=== PATIENT | female | born 1960 | race Caucasian/White ===

== ENCOUNTER → 2017-12-05 11:44 | Outpatient (CLI) | payer OTHER, SELFPAY ==
--- NOTE | 2017-12-05 11:51 | RAD_ITS ---
STUDY: X-RAY - LEFT HAND REASON FOR EXAM: Female, 57 years old. JOINT PAIN, NKI TECHNIQUE: 3 view(s) of the hand. COMPARISON: None. FINDINGS: Normal radiocarpal articulation. Normal distal radioulnar joint. The trapezium bone is missing and has been surgically removed. Normal visualized carpal bones. Normal carpal articulations There is degenerative arthrosis of the carpometacarpal (CMC) articulation of the thumb. Normal second through fifth carpometacarpal joints. Normal metacarpi. There is degenerative arthrosis of the metacarpophalangeal (MCP) joints. Normal interphalangeal joint of the thumb. Normal proximal and distal phalanges of the thumb. Normal metacarpophalangeal joints of the second through fifth fingers. There is degenerative arthrosis of the distal interphalangeal joints of the second and fifth metacarpal (Myao and questionable post fifth fingers. Normal phalanges of the second through fifth fingers. The soft tissue structures are unremarkable. RAD/Hand Min 3 Views IMPRESSION: Degenerative joint disease of the hand, as described above. Electronically Signed: Ollie Esparza MD at 11:43 EDT Tel , Service support ,
--- NOTE | 2017-12-05 11:51 | RAD_ITS ---
STUDY: X-RAY - RIGHT SHOULDER REASON FOR EXAM: Female, 57 years old. PAIN, LIMITED ROM, NKI TECHNIQUE: 4 view(s) of the shoulder. COMPARISON: None. FINDINGS: Normal glenohumeral articulation. There is degenerative arthrosis of the acromioclavicular joint without inferior osseous spur formation. Normal acromion. Normal humeral head and visualized proximal humerus. The soft tissue structures are unremarkable. Normal visualized pulmonary apex. RAD/Shoulder min 2 Views IMPRESSION: There is degenerative arthrosis of the acromioclavicular joint. Electronically Signed: Ollie Esparza MD at 12:09 EDT Tel , Service support ,
--- NOTE | 2017-12-05 11:51 | RAD_ITS ---
STUDY: X-RAY - RIGHT HAND REASON FOR EXAM: Female, 57 years old. Hand pain TECHNIQUE: 3 view(s) of the hand. COMPARISON: None. FINDINGS: Normal radiocarpal articulation. Normal distal radioulnar joint. Normal visualized carpal bones. Normal carpal articulations There is degenerative arthrosis of the carpometacarpal (CMC) articulation of the thumb. Normal second through fifth carpometacarpal joints. Normal metacarpi. There is degenerative arthrosis of the metacarpophalangeal (MCP) joints. Normal interphalangeal joint of the thumb. Normal proximal and distal phalanges of the thumb. Normal metacarpophalangeal joints of the second through fifth fingers. There is degenerative arthrosis of the distal interphalangeal joints of the second and fifth metacarpal (Mayo and questionable post fifth fingers. Normal phalanges of the second through fifth fingers. The soft tissue structures are unremarkable. RAD/Hand Min 3 Views IMPRESSION: Degenerative joint disease of the hand, as described above. Electronically Signed: Ollie Esparza MD at 11:05 EDT Tel , Service support ,
--- NOTE | 2017-12-05 11:51 | RAD_ITS ---
STUDY: X-RAY - PELVIS AND RIGHT HIP REASON FOR EXAM: Female, 57 years old. PAIN, TROCHANTERIC BURSITIS, NKI TECHNIQUE: Radiological exam, hip, unilateral, with pelvis when performed; 2 or 3 views. COMPARISON: None. FINDINGS: There is a non-specific bowel gas pattern. Normal visualized soft tissue structures. Normal bilateral iliac wings, sacroiliac joints and visualized sacrum. Normal bilateral superior and inferior pubic rami. Normal pubic symphysis. Normal bilateral ischial tuberosities. There are osteoarthritic changes of the femoral head with marginal osteophyte formation. There is osteoarthritic spur formation of the acetabular rim. There is moderate articular joint space narrowing of the hip. RAD/Hip 2-3 Views with Pelvis IMPRESSION: There are osteoarthritic changes of the pelvis and hip. Electronically Signed: Ollie Esparza MD at 11:54 EDT Tel , Service support ,
== END ==
PROVIDERS: Family Provider Internal Medicine; PCP Internal Medicine; Visit Provider Internal Medicine
DX: M70.61 Trochanteric bursitis, right hip (principal); M25.511 Pain in right shoulder; M25.50 Pain in unspecified joint
CPT/HCPCS: 73030; 73130; 73502

== ENCOUNTER → 2019-09-29 15:01 | Outpatient (CLI) | payer OTHER, SELFPAY ==
--- NOTE | 2019-09-29 15:09 | BI_ITS ---
MAMMOGRAPHY - BILATERAL SCREENING REASON FOR EXAM: Female, 59 years old. Routine annual screening examination. PERTINENT HISTORY: Non-contributory. TECHNIQUE: Digital bilateral breast skyla (3D mammographic acquisition) in the CC and MLO projections. 2-D mediolateral oblique (MLO) and craniocaudad (CC) views of both breasts were obtained. CAD: Full Field Digital Mammography with Computer Added Detection was performed. COMPARISON: Comparison is made with prior study dated November 30, 2016. FINDINGS: Breast Composition: The breasts are heterogeneously dense, which may obscure small masses. There are no dominant masses or suspicious calcifications. Stable asymmetry of breast tissue or more breast tissue is seen at the 12:00 position of the left breast as compared to the right side. This is unchanged. 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 Stable benign-appearing axillary lymph nodes. No other significant abnormalities are identified. There has been no significant change since the prior study. BI/SCREEN MAMM (CAD) W/SKYLA BILAT IMPRESSION: Stable bilateral screening mammogram. Yearly follow-up mammogram recommended. (A) ASSESSMENT CATEGORY: BIRADS Category 2: Benign. A letter regarding these results will be sent to the patient by the facility within 30 days. Approximately 10% of breast cancers are not detected by mammography. A normal mammogram should not delay biopsy of a clinically suspicious abnormality. [id number] Electronically Signed: [place], at 8:46 EST , Service support ,
--- NOTE | 2019-09-29 15:11 | BD_ITS ---
STUDY: DUAL ENERGY X-RAY ABSORPTIOMETRY / DXA REASON FOR EXAM: Female, 59 years old. 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 COMPARISON: None. FINDINGS: Lumbar Spine (L1-L4): g/cm2 (1.090) / T-score (-0.7) / Z-score (0.4) Findings are suggestive of normal bone density with a low fracture risk. Left Femur Total: g/cm2 (0.831) / T-score (-1.4) / Z-score (-0.5) Left Femoral Neck: g/cm2 (0.800) / T-score (-1.7) / Z-score (-0.5) Right Femur Total: g/cm2 (0.934) / T-score (-0.6) / Z-score (0.3) Right Femoral Neck: g/cm2 (0.970) / T-score (-0.5) / Z-score (0.7) BD/Dexa Bone Density Study IMPRESSION: The patient is considered osteopenic as outlined below according to World Darrell Organization (WHO) criteria with a moderate fracture risk. Reference Information: The T-score is the number of standard deviations above or below the standard which is normal for young adults at their peak bone mineral density. The World Health Organization (WHO) interprets the T-scores as follows: Above -1 Normal bone density Between -1 and -2.5 Osteopenia Equal to / or below -2.5 Osteoporosis As a practical clinical guideline, osteopenia may be graded as follows: Mild -1 through -1.5 Moderate -1.6 through -2.0 Severe -2.1 through -2.4 The Z-score is the number of standard deviations above or below age-matched controls. A Z-score of less than -1.5 would be considered abnormal. References: 1. NIH Osteoporosis and Related Bone Diseases http://www.osteo.org 2. International Society for Clinical Densitometry http://www.iscd.org 3. National Osteoporosis Foundation http://www.nof.org Electronically Signed: [place], at 15:38 EST , Service support ,
== END ==
PROVIDERS: Family Provider Internal Medicine; PCP Internal Medicine; Referring Provider Internal Medicine; Visit Provider Internal Medicine
DX: Z12.31 Encounter for screening mammogram for malignant neoplasm of breast (principal); Z78.0 Asymptomatic menopausal state
CPT/HCPCS: 77063; 77067; 77080

== ENCOUNTER 2020-11-27 18:15 | Observation (INO) | payer OTHER, SELFPAY ==
[2020-11-27] VITALS (9 sets, daily range): BP systolic 167–193; BP diastolic 98–144; PULSE 88–104; RESP 17–18; TEMP 36.6–37.1; O2SAT 98–100; BMI 26.9; BMI 25.4
--- NOTE | 2020-11-27 18:39 | CT_ITS ---
We are attempting to reach an attending provider to discuss findings. An addendum with communication details will be sent when the communication is complete. STUDY: CT HEAD STROKE PROTOCOL W/O CONTRAST INJECTION REASON FOR EXAM: Female, 60 years old. Neuro deficit, acute, stroke suspected RADIATION DOSAGE (If Supplied By Facility): CTDIvol = ( ) mGy, DLP = ( ) mGycm TECHNIQUE: Transaxial CT imaging of the brain was performed without administration of intravenous contrast material. Individualized dose optimization techniques were used for this CT. COMPARISON: No relevant priors. FINDINGS: Normal soft tissue structures. Normal calvarium. Normal size ventricles and extra-axial spaces for the patient''s age. Normal white matter tracts of the cerebral hemispheres. Normal basal ganglia and thalami. Normal brainstem. Normal cerebellum. There is no intracranial hemorrhage. There are no findings of an acute ischemic infarction. Normal visualized paranasal sinuses. ASPECT score: 10 CT/STROKE Brain/Head without Cont IMPRESSION: No acute intracranial hemorrhage or mass effect. Electronically Signed: Santo Melendez MD (Brooks) at 18:57 EDT , Service support ,
--- NOTE | 2020-11-27 18:39 | EKG12_ITS ---
Test Reason : NEURO Blood Pressure : / mmHG Vent. Rate : 105 BPM Atrial Rate : 105 BPM P-R Int : 184 ms QRS Dur : 078 ms QT Int : 366 ms P-R-T Axes : 039 014 064 degrees QTc Int : 483 ms Sinus tachycardia Left ventricular hypertrophy with repolarization abnormality Abnormal ECG Confirmed by DOMINGO CUEVAS, MARCELLO ([id number]), lidar scientist MIGUEL SHEA ([id number]) on 11/30/2020 10:02:03 AM Referred By: SHARON Confirmed By:MARCELLO LANE MD
--- NOTE | 2020-11-27 18:40 | CT_ITS ---
EXAM: CT ANGIOGRAPHY HEAD AND NECK WITH INTRAVENOUS CONTRAST CLINICAL INDICATION: Neuro deficit, acute, stroke suspected TECHNIQUE: [place] [facility] [place]/head and neck CT angiography protocol performed with intravenous contrast. This CT exam was performed using one or more of the following dose reduction techniques: automated exposure control, adjustment of the mA and/or kV according to patient size, and/or use of iterative reconstruction technique. This report was created using [employer] report generation technology. MIP reconstructed images were created and reviewed. CONTRAST: IV 100mL [id number] COMPARISON: None. FINDINGS: HEAD: RIGHT ANTERIOR CEREBRAL ARTERY: Unremarkable. No significant stenosis at the visualized segments. Anterior communicating artery is present. No aneurysm. RIGHT MIDDLE CEREBRAL ARTERY: Unremarkable. No significant stenosis at the visualized segments. No aneurysm. RIGHT POSTERIOR CEREBRAL ARTERY: Unremarkable. No occlusion or significant stenosis. No aneurysm. LEFT ANTERIOR CEREBRAL ARTERY: Unremarkable. No significant stenosis at the visualized segments. No aneurysm. LEFT MIDDLE CEREBRAL ARTERY: Unremarkable. No significant stenosis at the visualized segments. No aneurysm. LEFT POSTERIOR CEREBRAL ARTERY: Unremarkable. No occlusion or significant stenosis. No aneurysm. BASILAR ARTERY: Unremarkable. No significant stenosis. No aneurysm. GREAT VESSELS OF AORTIC ARCH: Mild atherosclerosis of the aortic arch. OTHER VASCULATURE: No vascular malformation. NECK: RIGHT COMMON CAROTID ARTERY: Unremarkable. No significant stenosis. No dissection or occlusion. RIGHT INTERNAL CAROTID ARTERY: Unremarkable. No significant stenosis. No dissection or occlusion. RIGHT EXTERNAL CAROTID ARTERY: Unremarkable. No occlusion. RIGHT VERTEBRAL ARTERY: Unremarkable. No significant stenosis. No dissection or occlusion. LEFT COMMON CAROTID ARTERY: Unremarkable. No significant stenosis. No dissection or occlusion. LEFT INTERNAL CAROTID ARTERY: Unremarkable. No significant stenosis. No dissection or occlusion. LEFT EXTERNAL CAROTID ARTERY: Unremarkable. No occlusion. LEFT VERTEBRAL ARTERY: Unremarkable. No significant stenosis. No dissection or occlusion. LUNG APICES: There are subpleural/paraseptal emphysematous changes of the right more than left apex. SOFT TISSUES: Unremarkable. Rightward apical nasal septal deviation with spur. CAROTID STENOSIS REFERENCE USING NASCET CRITERIA: % ICA stenosis = (1 - narrowest ICA diameter/diameter of distal cervical ICA) x 100. Mild - <50% stenosis. Moderate - 50-69% stenosis. Severe - 70-94% stenosis. Near occlusion - 95-99% stenosis. Occluded - 100% stenosis. CT/STROKE CTA Head AND Neck W/Con IMPRESSION: 1. No large vessel occlusion or intracranial aneurysm. 2. Normal bilateral carotid arteries without arterial dissection or submitted and likely significant stenosis. N.B. : The above information has been verbally conveyed by Santo Melendez MD (Brooks) to Storm Niyah on 11/27/2020 19:01:31 (ET). Electronically Signed: Santo Melendez MD (Brooks) at 19:05 EDT , Service support ,
[2020-11-27 18:49] LABS: Absolute Lymphocyte Count 3.97 X10^3/uL (0.83-4.51); Absolute Neutrophil Count 4.5 X10^3/uL (2.0-7.7); Basophil# 0.06 X10^3/uL; Basophil% 0.6 % (0-1); Eosinophil# 0.18 X10^3/uL; Eosinophils% 1.9 % (0-5); Hematocrit 39.4 % (37-47); Hemoglobin 12.8 g/dL (12.0-15.0); Lymphocyte # 3.97 X10^3/ul (4.0); Lymphocyte % 41.8 % (19-41); Mean Corp Hgb Conc 32.5 g/dL (32-36); Mean Corpuscular Hgb 29.6 pg (27.0-32.0); Mean Platelet Vol. 10.3 fl (6.2-12.0); Monocyte# 0.72 X10^3/uL; Monocyte% 7.6 % (0-10); NRBC Flagged by Analyzer 0 % (0-5); Neutrophil # 4.54 X10^3/uL (2.7-7.7); Neutrophil % 47.9 % (47-70); Platelet Count 243 K/mm3 (150-450); RBC Distribution Width CV 12.5 % (11.6-14.6); RBC Distribution Width SD 41.9 fl (35.1-43.9); Red Blood Count 4.33 M/mm3 (4.2-5.4); White Blood Count 9.5 K/mm3 (4.4-11.0)
[2020-11-27 18:54] LABS: Prothrombin Time (Protime)PT. 12.2 SECONDS (11.7-14.9)
[2020-11-27 18:55] LABS: Partial Thromboplast Time 25.9 Seconds (24.1-36.2)
[2020-11-27 19:02] LABS: Anion Gap 7 (5-15); BUN 12 mg/dL (7-18); BUN/Creat Ratio 15.1 RATIO (10-20); Calcium,Total 9.1 mg/dL (8.5-10.1); Chloride 104 mmol/L (98-107); EST Glomerular Filtration Rate 78 mL/min (>60); Est Glom Filt Rate - Afr Amer 94 mL/min (>60); Estimated Creatinine Clearance 61.86 ml/min; Glucose 95 mg/dL (74-106); Potassium 3.4 mmol/L (3.5-5.1); Sodium Level 139 mmol/L (136-145)
[2020-11-27 19:11] LABS: Alcohol, Blood (Medical)-Serum < 3.0 mg/dL
--- NOTE | 2020-11-27 19:30 | ED.DCSUM_ITS ---
- ER Visit Summary Date of Service: 11/27/20 Chief Complaint: [Confusion] History of Present Illness: The patient is a 60 F [does the emergency department with confusion that started about 2 hours ago. The patient's left to go to the grocery store and when he came back she was very disoriented. Patient apparently had taken a shower but could not remember that they had recently sold the house and had bought a new house. Patient have some of their belongings and some garbage bags and she did not understand what those were. Patient could not remember who the president was. Patient has never had an issue like this before. She denies any alcohol use. No history of stroke. She denies headache. She denies fall. No seizure history. She does have history of hypertension and high cholesterol.] Physical Examination: [HEENT-PERRLA, EOMI. Cranial nerves II through XII grossly intact. TMs clear. Mucous membranes moist. No adenopathy. Cardiovascular-regular rate and rhythm without murmur or ectopy Lungs-clear to auscultation, chest wall stable without crepitus or subcu emphysema Abdomen-normoactive bowel sounds, soft, nontender, no rebound or rigidity, no peritoneal signs. Neuro urst-swskph-chqw and heel canela testing within normal limits, negative Romb erg, negative for drift, fundi benign. NIH stroke scale essentially was a 0. Patient did have some trouble remembering the year but did eventually get it correct. Did not know the date. Extremities-intact ?4, normal range of motion, normal pulses, atraumatic] Test Results: [CT scan of the brain without contrast was unremarkable. CTA head and neck showed no large occlusions. EKG obtained arrival shows sinus rhythm with a ventricular rate of 105 bpm with no acute ST segment changes. CBC with it was normal. Chemistries normal. Alcohol was less than 3. Troponin was less than 0.015.] Emergency Department Course and Treatment: [On arrival patient placed on a environmental monitoring specialist. An IV line was established. CT scan was ordered immediately as a stroke team was called. Patient was evaluated by stroke neurologist and feels patient likely has a transient global amnesia and recommended admission for monitoring and MRI of brain. Patient is not a TPA candidate.] Treatment Plan: [Admit] Disposition: Admit [] Impression: [Fusion Transient global amnesia] This note was generated with [employer] dictation software. It may contain incorrect words, spelling, and punctuation that were not noted in review of the chart prior to signing ED Disposition - Plan for ED Patient: Referrals: Uzma Duggan MD [Primary Care Provider] -
[2020-11-27] MEDS: 0.9% Normal Saline 1,000 ML 100 ML IV ×2 (19:39→20:49)
--- NOTE | 2020-11-27 19:39 | PCM.HP.STD ---
Problem List (1) Global amnesia Status: Acute (2) HTN (hypertension) Status: Chronic Qualifiers: Hypertension type: essential hypertension Qualified Code(s): I10 - Essential (primary) hypertension (3) HLD (hyperlipidemia) Status: Chronic Qualifiers: Hyperlipidemia type: unspecified Qualified Code(s): E78.5 - Hyperlipidemia, unspecified (4) Anxiety and depression Status: Chronic (5) Former tobacco use Status: Chronic (6) History of ETOH abuse Status: Chronic History of Present Illness Date of Admission: 11/27/20 Chief Complaint: Global confusion The patient is a 60 y/o F w/ PMHx: Anxiety and Depression, HTN, HLD, Former Tobacco use, History of EtOH abuse sober x 7 years who presents to the [facility] ED on 11/27/20 with history of her going to the store and upon his return patient was significantly confused and disoriented with inability to recall recent events including the fact that they recently changed houses or who the president was. Her last known normal was at least 2 hours prior to ED alert arrival. In the emergency room her NIH stroke scale is 0 and she has no specific other deficits but has continued ongoing confusion with orientation questions and even her own life history. She notes feeling well otherwise with no recent fevers, chills, nausea, emesis, abdominal pain, chest pain, dyspnea. Work-up in the ED included T 98.4, heart rate 88, BP initially 186/110, respiratory rate 17, 98% on room air, CBC with WC 9.5, hemoglobin 12.8, platelet 243 that marked shift, unremarkable coags, BMP remarkable for potassium 3.4, troponin less than 0.015, ethyl alcohol less than 3, CT head with preliminarily no acute intracranial findings, CTA head neck with no large vessel occlusion or intracranial aneurysm with normal bilateral carotid arteries without arterial dissection or significant stenosis, EKG with sinus rhythm with no acute cardiopulmonary findings, UA unremarkable. In the ED patient ministered normal saline. Patient the emergency room is significantly confused and does not recall the last several days, NIH stroke scale totaling 0. Stroke alert was called and [facility] telestroke consultation was obtained with suspected transient global amnesia suspected to likely improve within 24 hours and if fluctuating possibility of complex partial seizure but very low on the differential with recommended continued stroke evaluation in addition to a urine drug screen. Past Medical History Past Medical History (Chronic Problems): Chronic Problems HTN (hypertension) (Chronic) HLD (hyperlipidemia) (Chronic) Anxiety and depression (Chronic) Former tobacco use (Chronic) History of ETOH abuse (Chronic) Allergies Penicillins [PCN] Allergy (Verified 11/27/20 18:20) Rash Home Medications: Ambulatory Orders Medication Instructions Recorded Aripiprazole 2 mg PO DAILY 11/27/20 Atorvastatin Calcium 10 mg PO DAILY 11/27/20 Duloxetine HCl 60 mg PO BID 11/27/20 Losartan/Hydrochlorothiazide 1 ea PO DAILY 11/27/20 [Losartan-Hctz 50-12.5 mg Tab] Surgical History: - - Left wrist surgery. Psychiatric History: Anxiety, Depression EXHIBIT CARPENTER History: No pertinent EXHIBIT CARPENTER history Lives: Spouse/ Significant Other Smoking Status: Former smoker - Patient quit cigarette tobacco usage in 1997 with prior to this 1 to up to 2 pack/day cigarette tobacco usage since she had been 12 years old. Tobacco Use: Non-smoker Alcohol: Sober - Patient reports being sober x7 years. Drugs: None - *Family History Maternal History Items: Heart Disease, Hypertension Paternal History Items: Heart Disease, Hypertension Review of Systems Constitutional: Reports: Fatigue. Denies: Anorexia, Chills, Fever, Malaise, Weakness, Weight Change HEENT: Denies: Head Aches, Sinus Congestion, Sinus Drainage Cardiovascular: Denies: Chest Pain, Palpitations Respiratory: Denies: Cough, Shortness of breath at rest, Sputum production Gastrointestinal: Denies: Abdominal Pain, Nausea, Vomiting Genitourinary: Denies: Dysuria Musculoskeletal: Denies: Joint Pain, Joint Tenderness Skin: Denies: Rash, Wounds Neurological: Reports: Confusion. Denies: Focal weakness, Numbness, Tingling Psychiatric: Reports: Anxiety, Depression. Denies: Homicidal Ideations, Suicidal Ideations Hematologic/ Lymphatic: Denies: Easy Bruising, Easy Bleeding VTE Information - Inpt Only VTE Present on Admission: No VTE Mechan Device Prophylaxis: SCD's VTE Pharm Prophylaxis ordered?: Yes Subjective: Patient seated upright in the ED bed, no acute distress, does become mildly flustered with history questions. Objective: Physical Examination: General: awake, alert, oriented to self, place, able to give further historical including the name of her children, grandchildren, her old occupation but does take some time to recall, more difficulty with current questions including year, month, remains cooperative, seated upright in the ED bed in no apparent distress. Skin: normal color, turgor, no icterus, cyanosis. HEENT: AT/NC, EOMI, PERRLA, MMM, no carotid bruits or JVD noted. Lungs: Clear to auscultation bilaterally, appropriate effort, no rales, ronchi or wheezing. Heart: Mildly tachycardic with regular rhythm; no gallop, rub audible. Abdomen: soft, NTTP, ND, normal BS, no HSM. Extremities: no cyanosis, clubbing, or edema. Neurological: patient awake, alert, oriented as noted; cognitive function not baseline intact; pupils equally reactive to light and accomodation; cranial nerves II-XII grossly normal, moving all 4 extremities, no focal deficits, strength preserved, sensation intact, appropriate [id number]-[id number] and nkbj-vx-[id number] bilaterally, negative Babinski. Psychiatric: affect appears mildly flustered with orientation questions but no obvious evidence of acute depressive or anxiety feelings. - Physical Exam Vitals/I&O's: Vital Signs Temp Pulse Resp BP Pulse Ox 98.4 F 100 18 177/98 H 99 11/27/20 18:16 11/27/20 18:56 11/27/20 18:39 11/27/20 18:56 11/27/20 18:40 Oxygen Delivery Method Room Air Weight: 152 lb 1.903 oz Body Mass Index (BMI) 26.9 Finger Stick Blood Glucose 94 Laboratory Results 11/27/20 18:25: WBC 9.5, RBC 4.33, Hgb 12.8, Hct 39.4, MCV 91.0, MCH 29.6, MCHC 32.5, RDW Std Deviation 41.9, RDW Coeff of Chicho 12.5, Plt Count 243, MPV 10.3, Immature Gran % (Auto) 0.200, Neut % (Auto) 47.9, Lymph % (Auto) 41.8 H, [place] % (Auto) 7.6, Eos % (Auto) 1.9, Baso % (Auto) 0.6, Absolute Neuts (auto) 4.5, Absolute Lymphs (auto) 3.97, Nucleated RBC % 0 11/27/20 18:25: PT 12.2, INR 1.0, APTT 25.9 11/27/20 18:25: Sodium 139, Potassium 3.4 L, Chloride 104, Carbon Dioxide 28.0, Anion Gap 7, BUN 12, Creatinine 0.80, Estim Creat Clear Calc 61.86, Est GFR (MDRD) Af Amer 94, Est GFR (MDRD) Non-Af 78, BUN/Creatinine Ratio 15.1, Glucose 95, Calcium 9.1, Troponin I < 0.015 11/27/20 18:25: Ethyl Alcohol < 3.0 Current Medications Sodium Chloride () 1,000 mls @ 100 mls/hr IV .Q10H ONE Stop: 11/28/20 04:38 Last Admin: 11/27/20 19:39 Dose: 100 mls/hr Documented by: Labetalol HCl (Labetalol (Prefilled) 20 Mg/4 Ml) 20 mg IV X1 PRN PRN Reason: Blood Pressure Assessment/Plan All Active Problems Global amnesia (Acute) The patient is a 60 y/o F w/ PMHx: Anxiety and Depression, HTN, HLD, Former Tobacco use, history of EtOH abuse sober x 7 years who presents to the [facility] ED on 11/27/20 with history of her going to the store and upon his return patient was significantly confused and disoriented with inability to recall recent events including the fact that they recently changed houses or who the president was. Her last known normal was at least 2 hours prior to ED alert arrival. 1. Global amnesia concerning for possible TIA/CVA versus Transient: Will admit to PCU, will obtain MRI Brain, ECHO, PT/OT/Speech/Nutrition evaluation per protocol. Will consult Neurology for evaluation once additional work-up and imaging has been obtained. Will allow permissive HTN, maintain on asa, change to high-dose statin w/ AM FLP, fall precautions. Pending magnesium, TSH, hemoglobin A1c, FLP. If work-up is unremarkable and continued concerns may consider EEG. Drug screen requested. 2. Hypertension: We will maintain permissive hypertension given pending evaluation as noted #1, as needed agents per protocol. 3. Hyperlipidemia: We will transition to high-dose statin given presentation, FLP in AM. 4. Anxiety and depression: We will continue patient home duloxetine and rip resolved regimen. 5. Former tobacco use: We will encourage continued tobacco cessation. 6. Hypokalemia: Admission K+ 3.4, magnesium level requested, supplementation given, repeat level in AM. 7. Former alcohol abuse: Patient notes being sober x7 years, encourage continued sobriety. 8. DVT prophylaxis: SCDs, Lovenox. OBSV E&M: [id number] Initial observation care L3
[2020-11-27 19:42] LABS: Bacteria 0 SEEN /hpf (None Seen); Mucous, Urine 0 SEEN /hpf (<or=2+)
[2020-11-27 19:43] LABS: Color, Urine Yellow (Yellow); Glucose, Dipstick Normal (Normal); Ketone-Dipstick Negative (Negative); Leukocyte Esterase-Dipstick 25 /ul (Negative); Nitrite-Dipstick Negative (Negative); Occult Blood-Urine 10 /ul (Negative); Protein-Dipstick Negative (Negative); Specific Gravity, Urine 1.005 (1.002-1.030); Urine Bilirubin Dipstick Negative (Negative); Urine Clarity Sl. Cloudy (Clear); Urine Urobilinogen Normal (Normal)
--- NOTE | 2020-11-27 19:43 | ED.RN ---
Per Dr. Linder NIH's do not need to be continued.
--- NOTE | 2020-11-27 19:44 | RAD_ITS ---
STUDY: X-RAY CHEST REASON FOR EXAM: Female, 60 years old. Neuro deficit, acute, stroke suspected TECHNIQUE: Single frontal view of the chest. COMPARISON: 03/08/2015. FINDINGS: There is no new focal consolidation. Normal size heart. Normal mediastinum and arley. Normal visualized pulmonary arteries. Normal visualized aortic arch and descending thoracic aorta. Normal visualized thoracic spine. Normal visualized ribs, clavicles, and shoulders. There is no demonstrated abnormality of the visualized soft tissue structures of the upper abdomen. RAD/Chest 1 View IMPRESSION: No acute cardiopulmonary process. Electronically Signed: Bouchra Zuniga MD at 20:29 EDT Tel , Service support ,
[2020-11-27 19:58] LABS: White Blood Cells 0-5 SEEN /hpf (0-5)
[2020-11-27 19:59] LABS: Red Blood Cells-Urine 0-5 SEEN /hpf (0-5); Squamous Epithelial Cells - UA 0-5 SEEN /hpf (5-10)
--- NOTE | 2020-11-27 20:44 | ECHOD_ITS ---
Reason For Study: CVA Procedure This was a 2D Doppler, Color Flow transthoracic echocardiogram. Exam performed in department. Left Ventricle Normal LV size. Left ventricular systolic function is normal. The estimated ejection fraction is 60 %. Normal diastology for age. No regional wall motion abnormalities noted. Right Ventricle Normal RV size. Normal systolic function. Atria Normal left atrium. Normal right atrium. Bubble contrast study negative for right to left interatrial shunt. Mitral Valve Normal mitral valve. Mild (1+) eccentric mitral valve insufficiency. Tricuspid Valve Normal tricuspid valve. Mild (1+) tricuspid valve insufficiency. Pulmonary artery systolic pressure is 30 mmHg. Aortic Valve Trisinus/trileaflet aortic valve. Mild (1+) aortic valve insufficiency. Pulmonic Valve Normal pulmonic valve. Great Vessels Normal aortic root. The pulmonary artery is normal size. Normal inferior vena cava. Pericardium/Pleural No pericardial effusion. Medication Performed a rapid injection of agitated mix of 9 cc saline and 1cc air to assess for atrial septal defect. MMode/2D Measurements & Calculations LVIDd: 4.2 cm IVSd: 0.90 cm Ao root diam: 3.4 cm LVIDs: 3.0 cm LVPWd: 1.0 cm RVDd: 3.3 cm FS: 28.5 % LAV(MOD-bp): 43.2 ml LA A4 area: 17.1 cm2 LA dimension(2D): 3.4 cm LAV(MOD-bp) Indexed: 25.5 ml/m2 LAV(MOD-sp2): 38.8 ml LAV(MOD-sp4): 49.6 ml RA A4 area: 10.0 cm2 Time Measurements MV dec time: 0.16 sec Doppler Measurements & Calculations MV E max baldomero: 88.9 cm/sec Lat Peak E' Baldomero: 8.4 cm/sec Med Peak E' Baldomero: 7.0 cm/sec MV A max baldomero: 76.9 cm/sec E/E' lat: 10.6 E/E' med: 12.6 MV E/A: 1.2 Ao V2 max: 111.8 cm/sec AI max baldomero: 369.7 cm/sec LV V1 max: 92.9 cm/sec Ao max P.0 mmHg AI max P.9 mmHg LV V1 max P.5 mmHg AI dec slope: 222.2 cm/sec2 AI P1/2t: 487.3 msec PA V2 max: 79.6 cm/sec TR max baldomero: 253.6 cm/sec TR max P.7 mmHg Interpretation Summary Normal LV size. Left ventricular systolic function is normal. The estimated ejection fraction is 60 %. Pulmonary artery systolic pressure is 30 mmHg. Mild (1+) aortic valve insufficiency. Ordering Physician: Melissa Freedman Referring Physician: Uzma Duggan Performed By: Casi Banks, ZURDO, RVT
[2020-11-27 21:05] LABS: Magnesium 1.9 mg/dL (1.6-2.6)
[2020-11-27 21:08] LABS: Amphetamine Urine VISTA NEGATIVE (<1000 ng/mL); Barbiturate Urine VISTA NEGATIVE (< 200 ng/mL); Benzodiazepine Urine VISTA NEGATIVE (< 200 ng/mL); Cocaine Urine VISTA NEGATIVE (< 300 ng/mL); Ecstacy Urine VISTA NEGATIVE (< 500 ng/mL); Methadone Urine VISTA NEGATIVE (< 300 ng/mL); PCP Urine VISTA NEGATIVE (< 25 ng/mL); THC Urine VISTA NEGATIVE (< 50 ng/mL); Vista UDS pH Range 6
--- NOTE | 2020-11-27 21:29 | NURSING ---
Dr. Duggan (Pt.'s PCP) calls in at this time, update given from this RN.
[2020-11-27] MEDS: Thiamine Hydrochloride 100 MG Tablet PO (21:46)
[2020-11-27] MEDS: Potassium Chloride Oral Tablet 20 MEQ 40 MEQ PO (21:46)
[2020-11-27] MEDS: DULoxetine Hcl 60 MG Capsule PO (21:46)
[2020-11-27] MEDS: Atorvastatin Calcium 80 MG Tablet PO (21:46)
[2020-11-28] VITALS (9 sets, daily range): BP systolic 106–127; BP diastolic 71–92; PULSE 78–89; RESP 15–18; TEMP 36.6–36.8; O2SAT 94–98; BMI 25.4
[2020-11-28] MEDS: 0.9% Normal Saline 1,000 ML 100 ML IV (03:37)
[2020-11-28] MEDS: 0.9% Saline Lock 10 ML Syringe IV (03:37)
[2020-11-28 05:21] LABS: Absolute Lymphocyte Count 3.06 X10^3/uL (0.83-4.51); Absolute Neutrophil Count 4.3 X10^3/uL (2.0-7.7); Basophil# 0.05 X10^3/uL; Basophil% 0.6 % (0-1); Eosinophil# 0.11 X10^3/uL; Eosinophils% 1.4 % (0-5); Hematocrit 37.9 % (37-47); Hemoglobin 12.2 g/dL (12.0-15.0); Lymphocyte # 3.06 X10^3/ul (4.0); Lymphocyte % 37.7 % (19-41); Mean Corp Hgb Conc 32.2 g/dL (32-36); Mean Corpuscular Hgb 29.5 pg (27.0-32.0); Mean Corpuscular Volume 91.8 fL (81-99); Mean Platelet Vol. 10.2 fl (6.2-12.0); Monocyte# 0.61 X10^3/uL; Monocyte% 7.5 % (0-10); NRBC Flagged by Analyzer 0 % (0-5); Neutrophil # 4.27 X10^3/uL (2.7-7.7); Neutrophil % 52.6 % (47-70); Platelet Count 230 K/mm3 (150-450); RBC Distribution Width CV 12.5 % (11.6-14.6); RBC Distribution Width SD 42.1 fl (35.1-43.9); Red Blood Count 4.13 M/mm3 (4.2-5.4); White Blood Count 8.1 K/mm3 (4.4-11.0)
--- NOTE | 2020-11-28 05:55 | MRI_ITS ---
STUDY: MRI BRAIN WITHOUT CONTRAST REASON FOR EXAM: Female, 60 years old. CVA TECHNIQUE: Standardized multiplanar fat and water weighted pulse sequences were obtained. COMPARISON: CT 11/27/2020 FINDINGS: Normal size of the ventricles and extra-axial spaces for the patient''s age. Normal white matter tracts of the supratentorial brain. There is no evidence for recent intracranial ischemia or other cause of cytotoxic edema on diffusion weighted imaging (DWI). Normal T2* images of the brain without demonstrated susceptibility artifact. There is no demonstrated hemosiderin stain. Normal bilateral basal ganglia. Normal thalami. There is no extra-axial fluid accumulation. Normal flow voids within the major intracranial circulation suggesting patency by spin echo criteria. Normal sella turcica, pituitary gland, infundibular stalk, optic chiasm and hypothalamus. Normal tectal plate and pineal gland. Normal midbrain, meena and medulla. Normal cerebellum. Normal basal cisterns. Normal bilateral temporal bones. Normal bilateral internal auditory canals. No demonstrated orbital abnormality, within the constraints of a routine brain study. Normal visualized paranasal sinuses. Normal calvarium and skull base. Normal visualized soft tissue structures. Normal visualized upper cervical spine. MRI/Brain without Contrast IMPRESSION: Normal unenhanced MRI of the brain. Electronically Signed: Evans Hill MD at 14:00 EDT Tel , Service support ,
[2020-11-28 06:15] LABS: ALB/GLOB Ratio 1.2 RATIO (0.9-2.4); AST(SGOT) 18 U/L (15-37); Alanine Aminotransfer ALT/SGPT 29 U/L (13-56); Albumin, Serum 3.5 g/dL (3.2-5.0); Alkaline Phosphatase 68 U/L (45-117); Anion Gap 5 (5-15); BUN 8 mg/dL (7-18); BUN/Creat Ratio 12.1 RATIO (10-20); Calcium,Total 8.4 mg/dL (8.5-10.1); Chloride 109 mmol/L (98-107); Cholesterol 145 mg/dL (200); Creatinine, Serum 0.66 mg/dL (0.55-1.02); EST Glomerular Filtration Rate 97 mL/min (>60); Est Glom Filt Rate - Afr Amer 117 mL/min (>60); Estimated Creatinine Clearance 74.98 ml/min; Glucose 93 mg/dL (74-106); High Density Lipoprotein 45 mg/dL; Potassium 3.7 mmol/L (3.5-5.1); Protein, Total 6.5 g/dL (6.4-8.2); Sodium Level 141 mmol/L (136-145); T4 Free Direct 0.87 ng/dL (0.76-1.46); Thyroid Stim Hormone (TSH) 4.35 uIU/mL (0.358-3.74); Triglycerides 195 mg/dL; Very Low Density Lipoprotein 39 mg/dL (5-40)
[2020-11-28] MEDS: ARIPiprazole 2 MG Tablet PO (08:25)
[2020-11-28] MEDS: Thiamine Hydrochloride 100 MG Tablet PO (08:25)
[2020-11-28] MEDS: Folic Acid 1 MG Tablet PO (08:25)
[2020-11-28] MEDS: Aspirin 81 MG TAB.CHEW PO (08:25)
[2020-11-28] MEDS: DULoxetine Hcl 60 MG Capsule PO (08:25)
[2020-11-28] MEDS: Enoxaparin 40 MG/0.4 ML Syringe SC (08:27)
[2020-11-28 09:04] LABS: Hemoglobin A1c 5.4 % (3.8-5.6)
[2020-11-28 09:58] LABS: Vitamin B12 1396 pg/mL (211-911)
--- NOTE | 2020-11-28 10:22 | CASEMGMT ---
PHQ-9 not completed as pt did not have CVA/TIA. ARASH Gutierrez
--- NOTE | 2020-11-28 11:49 | DCINST_ITS ---
- Discharge Diagnoses Current Active Problems: Current Active and Chronic Problems Global amnesia (Acute) HTN (hypertension) (Chronic) HLD (hyperlipidemia) (Chronic) Anxiety and depression (Chronic) Former tobacco use (Chronic) History of ETOH abuse (Chronic) You will use the following diet at home:: No restrictions Discharge Activity: Return to Normal Activity Call your doctor if you observe: Shortness of breath, Dizziness, Fainting spells, Chest pain Allergies/Adverse Reactions: Allergies Penicillins [PCN] Allergy (Verified 11/27/20 18:20) Rash Medications to take at Discharge Aripiprazole 2 mg PO DAILY 11/27/20 Atorvastatin Calcium 10 mg PO DAILY 11/27/20 Duloxetine HCl 60 mg PO BID 11/27/20 Losartan/Hydrochlorothiazide [Losartan-Hctz 50-12.5 mg Tab] 1 ea PO DAILY 11/27/20 Primary Care Physician: Uzma Duggan MD [Primary Care Provider] - Please follow up with your Primary Care Physician in: 1 Week Test Results: Test results from this visit will be discussed in further detail at your follow- up appointment, if applicable. Please Follow Up With: Hermelindo Purvis MD When: 2 Weeks Proposed Discharge Date: 11/28/20
--- NOTE | 2020-11-28 12:10 | NURSING ---
Off unit for MRI
--- NOTE | 2020-11-28 14:23 | PCM.DC.SUM ---
<Park Mcfarlane SLIP COVER SEWER - Last Filed: 11/28/20 14:35> Discharge Date and Diagnosis - Problem List Patient Problems: Active and Suspected Problems Global amnesia (Acute) Date of Admission: 11/27/20 Date of Discharge: 11/28/20 - Primary Discharge Diagnosis Acute Problems: Active Problems 1. Transient global amnesia-TIA/CVA ruled out 2. Hypertension 3. Hyperlipidemia 4. Anxiety/depression 5. Former tobacco use 6. Former alcohol use - Secondary Discharge Diagnosis Chronic Problems: Chronic Problems HTN (hypertension) (Chronic) HLD (hyperlipidemia) (Chronic) Anxiety and depression (Chronic) Former tobacco use (Chronic) History of ETOH abuse (Chronic) Hospital Course and Treatment Imaging Results: Diagnostic Data Brain CT 11/27/20 18:39 IMPRESSION: No acute intracranial hemorrhage or mass effect. Electronically Signed: Santo Melendez MD (Brooks) at 18:57 EDT , Service support , ADDENDUM: 11/28/20 0909 IMPRESSION: No acute intracranial hemorrhage or mass effect. N.B. : The above information has been verbally conveyed by Santo Melendez MD (Brooks) to Storm Linder on 11/27/2020 18:58:08 (ET). Electronically Signed: Santo Melendez MD (Brooks) at 18:57 EDT , Service support , Head/Neck CTA 11/27/20 18:40 IMPRESSION: 1. No large vessel occlusion or intracranial aneurysm. 2. Normal bilateral carotid arteries without arterial dissection or submitted and likely significant stenosis. N.B. : The above information has been verbally conveyed by Santo Melendez MD (Brooks) to Storm Linder on 11/27/2020 19:01:31 (ET). Electronically Signed: Santo Melendez MD (Brooks) at 19:05 EDT , Service support , Chest X-Ray 11/27/20 19:44 IMPRESSION: No acute cardiopulmonary process. Electronically Signed: Bouchra Zuniga MD at 20:29 EDT Tel , Service support , Brain MRI 11/28/20 05:55 IMPRESSION: Normal unenhanced MRI of the brain. Electronically Signed: Evans Hill MD at 14:00 EDT Tel , Service support , Neurology Operations: None Procedures: 2-D Echocardiogram Summary of Care Provided: The patient is a 60 year old F admitted 11/27/2020 due to global confusion. 1. Transient global amnesia-TIA/CVA ruled out. Brain CT and CTA Head/Neck unremarkable. MRI of brain normal. Echocardiogram demonstrates an EF of 60%, mild aortic valve insufficiency, pulmonary artery systolic pressure 30 mmHg. Neurology suspects transient global amnesia. Follow-up with neurology in 2 weeks. Follow-up with PCP in 1 week. 2. Hypertension-stable, continue losartan/HCTZ. 3. Hyperlipidemia- on statin. 4. Anxiety/depression-on duloxetine. 5. Former tobacco use-encouraged continued cessation. 6. Former alcohol use-encouraged continued cessation. Patient seen and examined prior to discharge. Physical assessment as noted below. Patient is stable for discharge with follow up recommendations as noted above. This patient was seen by KRIS Douglas under the supervision of Dr. Blankenship. Patient Problems: Active and Suspected Problems Global amnesia (Acute) - Physical Exam Vitals/I&O's: Vital Signs Temp Pulse Resp BP Pulse Ox 98.3 F 88 16 127/92 H 94 11/28/20 08:13 11/28/20 11:13 11/28/20 08:13 11/28/20 08:13 11/28/20 08:13 Oxygen Delivery Method Room Air Weight: 147 lb 11.355 oz Body Mass Index (BMI) 25.4 Finger Stick Blood Glucose 94 Intake and Output for Last 24 Hours 11/26/20 11/27/20 11/28/20 22:59 23:59 23:59 Intake Total Balance General: Alert, Oriented x3, Cooperative HEENT: Atraumatic, PERRLA, EOMI, Normocephalic Neck: Supple, No JVD, Negative Carotid Bruits Lungs: Clear to auscultation, Normal air movement Cardiovascular: Regular rate, No murmurs Abdomen: Bowel Sounds Present, Soft, Non Tender Extremities: No clubbing, No cyanosis, No edema, Capillary Refill Less than 3 Seconds Skin: No rashes, No breakdown Musculoskeletal: No Tenderness to Palpation of Joints or Extremities Neurological: Cranial nerves II-XII grossly intact, Neuro grossly intact Psych/Mental Status: Normal Affect, Appropriate Laboratory Results 11/27/20 18:25: WBC 9.5, RBC 4.33, Hgb 12.8, Hct 39.4, MCV 91.0, MCH 29.6, MCHC 32.5, RDW Std Deviation 41.9, RDW Coeff of [place]ich[place] 12.5, Plt Count 243, MPV 10.3, Immature Gran % (Auto) 0.200, Neut % (Auto) 47.9, Lymph % (Auto) 41.8 H, Meade % (Auto) 7.6, Eos % (Auto) 1.9, Baso % (Auto) 0.6, Absolute Neuts (auto) 4.5, Absolute Lymphs (auto) 3.97, Nucleated RBC % 0 11/27/20 18:25: PT 12.2, INR 1.0, APTT 25.9 11/27/20 18:25: Sodium 139, Potassium 3.4 L, Chloride 104, Carbon Dioxide 28.0, Anion Gap 7, BUN 12, Creatinine 0.80, Estim Creat Clear Calc 61.86, Est GFR (MDRD) Af Amer 94, Est GFR (MDRD) Non-Af 78, BUN/Creatinine Ratio 15.1, Glucose 95, Calcium 9.1, Troponin I < 0.015 11/27/20 18:25: Ethyl Alcohol < 3.0 11/27/20 18:25: Magnesium 1.9 11/27/20 19:30: Urine Color Yellow, Urine Clarity Sl. Cloudy, Urine pH 7.0, Ur Specific [place] 1.005, Urine Protein Negative, Urine Glucose (UA) Normal, Urine Ketones Negative, Urine Occult Blood 10 H, Urine Nitrite Negative, Urine Bilirubin Negative, Urine Urobilinogen Normal, Ur Leukocyte Esterase 25 H, Urine RBC 0-5 SEEN, Urine WBC 0-5 SEEN, Ur Squamous Epith Cells 0-5 SEEN, Urine Bacteria 0 SEEN, Urine Mucus 0 SEEN 11/27/20 19:30: Urine Opiates Screen NEGATIVE, Urine Methadone Screen NEGATIVE, Ur Barbiturates Screen NEGATIVE, Ur Phencyclidine Scrn NEGATIVE, Ur Amphetamines Screen NEGATIVE, U Methamphetamin-MDMA NEGATIVE, U Benzodiazepines Scrn NEGATIVE, Urine Cocaine Screen NEGATIVE, U Cannabinoids Screen NEGATIVE, Ur Drug Screen Comment 11/28/20 04:58: WBC 8.1, RBC 4.13 L, Hgb 12.2, Hct 37.9, MCV 91.8, MCH 29.5, MCHC 32.2, RDW Std Deviation 42.1, RDW Coeff of [place]icho 12.5, Plt Count 230, MPV 10.2, Immature Gran % (Auto) 0.200, Neut % (Auto) 52.6, Lymph % (Auto) 37.7, Meade % (Auto) 7.5, Eos % (Auto) 1.4, Baso % (Auto) 0.6, Absolute Neuts (auto) 4.3, Absolute Lymphs (auto) 3.06, Nucleated RBC % 0 11/28/20 04:58: Sodium 141, Potassium 3.7, Chloride 109 H, Carbon Dioxide 27.0, Anion Gap 5, BUN 8, Creatinine 0.66, Estim Creat Clear Calc 74.98, Est GFR (MDRD) Af Amer 117, Est GFR (MDRD) Non-Af 97, BUN/Creatinine Ratio 12.1, Glucose 93, Calcium 8.4 L, Total Bilirubin 0.30, AST 18, ALT 29, Alkaline Phosphatase 68, Total Protein 6.5, Albumin 3.5, Globulin 3.0, Albumin/Globulin Ratio 1.2, Triglycerides 195, Cholesterol 145, LDL Cholesterol 61, VLDL Cholesterol 39, HDL Cholesterol 45, Folate 43.30, TSH 4.35 H, Free T4 0.87 11/28/20 04:58: Hemoglobin A1c 5.4 11/28/20 04:58: Vitamin B12 1396 H Current Medications Acetaminophen (Acetaminophen 325 Mg Tablet) 650 mg PO Q6H PRN PRN PRN Reason: Pain Score 1-10/Temp > 100.7 F Al Hydroxide/Mg Hydroxide (Mag Hydrox/Al Hydrox/Simeth 30 Ml Udc) 30 ml PO Q6H PRN PRN PRN Reason: Gastric Burning Albuterol Sulfate (Albuterol 2.5 Mg/3 Ml Vial.Neb.) 2.5 mg INHALATION Q2H PRN PRN PRN Reason: Dyspnea, wheezing Aripiprazole (Aripiprazole 2 Mg Tablet) 2 mg PO DAILY [facility] Last Admin: 11/28/20 08:25 Dose: 2 mg Documented by: Aspirin (Aspirin 81 Mg Tab.Chew) 81 mg PO DAILY@0800 [facility] Last Admin: 11/28/20 08:25 Dose: 81 mg Documented by: Atorvastatin Calcium (Atorvastatin Calcium 80 Mg Tablet) 80 mg PO QHS [facility] Last Admin: 11/27/20 21:46 Dose: 80 mg Documented by: Duloxetine HCl (Duloxetine Hcl 60 Mg Capsule) 60 mg PO BID [facility] Last Admin: 11/28/20 08:25 Dose: 60 mg Documented by: Enoxaparin Sodium (Enoxaparin 40 Mg/0.4 Ml Syringe) 40 mg SC DAILY [facility] Last Admin: 11/28/20 08:27 Dose: 40 mg Documented by: Folic Acid (Folic Acid 1 Mg Tablet) 1 mg PO DAILY@0800 [facility] Last Admin: 11/28/20 08:25 Dose: 1 mg Documented by: Guaifenesin (Guaifenesin 10 Ml Udc (200mg/10ml)) 20 ml PO Q4H PRN PRN PRN Reason: COUGH Hydralazine HCl (Hydralazine 20 Mg/Ml Vial) 5 mg IV Q30M PRN PRN Reason: to maintain BP goals Sodium Chloride () 1,000 mls @ 100 mls/hr IV .Q10H [facility] Last Infusion: 11/28/20 11:59 Dose: 0 mls/hr Documented by: Labetalol HCl (Labetalol (Prefilled) 20 Mg/4 Ml) 10 - 20 mg IV Q10M PRN PRN PRN Reason: to Maintain BP Goals Magnesium Hydroxide (Magnesium Hydroxide 30 Ml Udc) 30 ml PO DAILY PRN PRN PRN Reason: Constipation Melatonin (Melatonin 3 Mg Tablet) 3 mg PO QHS PRN PRN PRN Reason: INSOMNIA Ondansetron HCl (Ondansetron 4 Mg/2 Ml Vial) 4 mg IV Q8H PRN PRN PRN Reason: NAUSEA/VOMITING Prochlorperazine Edisylate (Prochlorperazine 10 Mg/2 Ml Vial) 5 mg IV Q4H PRN PRN PRN Reason: Breakthrough Nausea/Vomiting Psyllium Hydrophilic Mucilloid (Psyllium 1 Packet) 1 packet PO DAILY PRN PRN PRN Reason: Constipation Senna/Docusate Sodium (Senna/Docusate Sodium 1 Tablet) 2 tablet PO BID PRN PRN PRN Reason: Constipation Sodium Chloride (0.9% Saline Lock 10 Ml Syringe) 10 - 40 ml IV UD PRN PRN Reason: SALINE FLUSH Last Admin: 11/28/20 03:37 Dose: 10 ml Documented by: Thiamine HCl (Thiamine Hydrochloride 100 Mg Tablet) 100 mg PO DAILYCM [facility] Last Admin: 11/28/20 08:25 Dose: 100 mg Documented by: Throat Lozenges (Benzocaine/Menthol 1 Lozenge) 1 lozenge MUCOUS MEM Q2H PRN PRN PRN Reason: SORE THROAT Discharge Diet: No Restrictions Discharge Activity: Return to Normal Activity Call your doctor if you observe: Shortness of breath, Dizziness, Fainting spells, Chest pain Home Medications: Medications to take at Discharge Aripiprazole 2 mg PO DAILY 11/27/20 Atorvastatin Calcium 10 mg PO DAILY 11/27/20 Duloxetine HCl 60 mg PO BID 11/27/20 Losartan/Hydrochlorothiazide [Losartan-Hctz 50-12.5 mg Tab] 1 ea PO DAILY 11/27/20 Primary Care Physician: Uzma Duggan MD [Primary Care Provider] - Please follow up with your Primary Care Physician in: 1 Week Please Follow Up With: Hermelindo Purvis MD When: 2 Weeks Disposition: Home Minutes spent on discharge:: 35 Patient Condition:: Stable Medical Necessity - Tobacco Use Smoking Status: Former smoker Tobacco Use: Non-smoker Meaningful Use Info Meaningful Use Diagnoses (Choose all that apply): None applicable <Antonio Blankenship - Last Filed: 11/28/20 16:32> Discharge Date and Diagnosis - Primary Discharge Diagnosis Acute Problems: Active Problems Global amnesia (Acute) - Secondary Discharge Diagnosis Chronic Problems: Chronic Problems HTN (hypertension) (Chronic) HLD (hyperlipidemia) (Chronic) Anxiety and depression (Chronic) Former tobacco use (Chronic) History of ETOH abuse (Chronic) Hospital Course and Treatment Summary of Care Provided: The patient is a 60 year old F [] - Physical Exam Vitals/I&O's: Vital Signs Temp Pulse Resp BP Pulse Ox 98.1 F 84 15 122/87 H 96 11/28/20 14:30 11/28/20 14:30 11/28/20 14:30 11/28/20 14:30 11/28/20 14:30 Oxygen Delivery Method Room Air Weight: 147 lb 11.355 oz Body Mass Index (BMI) 25.4 Finger Stick Blood Glucose 94 Intake and Output for Last 24 Hours 11/26/20 11/27/20 11/28/20 22:59 23:59 23:59 Intake Total Balance Laboratory Results 11/27/20 18:25: WBC 9.5, RBC 4.33, Hgb 12.8, Hct 39.4, MCV 91.0, MCH 29.6, MCHC 32.5, RDW Std Deviation 41.9, RDW Coeff of [place] 12.5, Plt Count 243, MPV 10.3, Immature Gran % (Auto) 0.200, Neut % (Auto) 47.9, Lymph % (Auto) 41.8 H, [place]ade % (Auto) 7.6, Eos % (Auto) 1.9, Baso % (Auto) 0.6, Absolute Neuts (auto) 4.5, Absolute Lymphs (auto) 3.97, Nucleated RBC % 0 11/27/20 18:25: PT 12.2, INR 1.0, APTT 25.9 11/27/20 18:25: Sodium 139, Potassium 3.4 L, Chloride 104, Carbon Dioxide 28.0, Anion Gap 7, BUN 12, Creatinine 0.80, Estim Creat Clear Calc 61.86, Est GFR (MDRD) Af Amer 94, Est GFR (MDRD) Non-Af 78, BUN/Creatinine Ratio 15.1, Glucose 95, Calcium 9.1, Troponin I < 0.015 11/27/20 18:25: Ethyl Alcohol < 3.0 11/27/20 18:25: Magnesium 1.9 11/27/20 19:30: Urine Color Yellow, Urine Clarity Sl. Cloudy, Urine pH 7.0, Ur Specific [place] 1.005, Urine Protein Negative, Urine Glucose (UA) Normal, Urine Ketones Negative, Urine Occult Blood 10 H, Urine Nitrite Negative, Urine Bilirubin Negative, Urine Urobilinogen Normal, Ur Leukocyte Esterase 25 H, Urine RBC 0-5 SEEN, Urine WBC 0-5 SEEN, Ur Squamous Epith Cells 0-5 SEEN, Urine Bacteria 0 SEEN, Urine Mucus 0 SEEN 11/27/20 19:30: Urine Opiates Screen NEGATIVE, Urine Methadone Screen NEGATIVE, Ur Barbiturates Screen NEGATIVE, Ur Phencyclidine Scrn NEGATIVE, Ur Amphetamines Screen NEGATIVE, U Methamphetamin-MDMA NEGATIVE, U Benzodiazepines Scrn NEGATIVE, Urine Cocaine Screen NEGATIVE, U Cannabinoids Screen NEGATIVE, Ur Drug Screen Comment 11/28/20 04:58: WBC 8.1, RBC 4.13 L, Hgb 12.2, Hct 37.9, MCV 91.8, MCH 29.5, MCHC 32.2, RDW Std Deviation 42.1, RDW Coeff of Chicho 12.5, Plt Count 230, MPV 10.2, Immature Gran % (Auto) 0.200, Neut % (Auto) 52.6, Lymph % (Auto) 37.7, [place] % (Auto) 7.5, Eos % (Auto) 1.4, Baso % (Auto) 0.6, Absolute Neuts (auto) 4.3, Absolute Lymphs (auto) 3.06, Nucleated RBC % 0 11/28/20 04:58: Sodium 141, Potassium 3.7, Chloride 109 H, Carbon Dioxide 27.0, Anion Gap 5, BUN 8, Creatinine 0.66, Estim Creat Clear Calc 74.98, Est GFR (MDRD) Af Amer 117, Est GFR (MDRD) Non-Af 97, BUN/Creatinine Ratio 12.1, Glucose 93, Calcium 8.4 L, Total Bilirubin 0.30, AST 18, ALT 29, Alkaline Phosphatase 68, Total Protein 6.5, Albumin 3.5, Globulin 3.0, Albumin/Globulin Ratio 1.2, Triglycerides 195, Cholesterol 145, LDL Cholesterol 61, VLDL Cholesterol 39, HDL Cholesterol 45, Folate 43.30, TSH 4.35 H, Free T4 0.87 11/28/20 04:58: Hemoglobin A1c 5.4 11/28/20 04:58: Vitamin B12 1396 H Addendum: Dr. Blankenship I personally examined the patient and reviewed the chart. I agree with the above. 6-year-old female presented to the hospital with transient global amnesia. She had an MRI which was unremarkable and she was evaluated in the ER by [facility] neurology who felt that this was likely transient global amnesia. All symptoms resolved this morning and she cannot remember why she was confused in the first place. She denies any stress at home though she does have a history of anxiety. She states that she otherwise feels fine she knows what year it is what month it is and who the president is and she would like to go home today. So far work-up has been negative therefore recommend follow-up with neurology in 2 weeks upon discharge. Discussed with her the plan for discharge and she expressed understanding the risk benefits of going home and wants to go home today. OBSV E&M: [id number] Observation care discharge
--- NOTE | 2020-11-28 14:57 | PHA.DC.MR ---
Pharmacy Service has performed discharge medication reconciliation for this patient. The patient's discharge medication list was reviewed for discrepancies and discrepancies were resolved. Home Medications Aripiprazole 2 mg PO DAILY 11/27/20 Atorvastatin Calcium 10 mg PO DAILY 11/27/20 Duloxetine HCl 60 mg PO BID 11/27/20 Losartan/Hydrochlorothiazide [Losartan-Hctz 50-12.5 mg Tab] 1 ea PO DAILY 11/27/20
== END 2020-11-28 11:49 | disposition home or self-care (01) ==
LOC: ED 19:38 → PCU 19:52
PROVIDERS: Internal Medicine; Admitting Provider Family Medicine; Emergency Provider Emergency Medicine; PCP Internal Medicine; Visit Provider Family Medicine
DX: G45.4 Transient global amnesia (principal); I10 Essential (primary) hypertension; E78.5 Hyperlipidemia, unspecified; R29.700 NIHSS score 0; F10.11 Alcohol abuse, in remission; F41.9 Anxiety disorder, unspecified; F32.9 Major depressive disorder, single episode, unspecified; Z87.891 Personal history of nicotine dependence; Z79.899 Other long term (current) drug therapy; Z79.82 Long term (current) use of aspirin; E87.6 Hypokalemia
CPT/HCPCS: 70450; 70496; 70498; 70551; 71045; 80048; 80053; 80061; 80307; 81001; 82077; 82607; 82746; 83036; 83735; 84439; 84443; 84484; 85025; 85610; 85730; 92610; 93005; 93306; 96360; 96361; 96372; 99218; 99251; 99285; J7030; A4216; G0378; G0463

== ENCOUNTER → 2020-12-13 10:22 | Outpatient (CLI) | payer OTHER, SELFPAY ==
[2020-11-28 12:12] VITALS: BMI 25.4
--- NOTE | 2020-12-13 10:25 | BI_ITS ---
MAMMOGRAPHY - BILATERAL SCREENING REASON FOR EXAM: Female, 60 years old. Routine annual screening examination. PERTINENT HISTORY: Non-contributory. TECHNIQUE: Digital bilateral breast skyla (3D mammographic acquisition) in the CC and MLO projections. 2-D mediolateral oblique (MLO) and craniocaudad (CC) views of both breasts were obtained. CAD: Full Field Digital Mammography with Computer Added Detection was performed. COMPARISON: Comparison is made with prior study dated 09/29/2019 and 11/30/2016. FINDINGS: Breast Composition: The breasts are heterogeneously dense, which may obscure small masses. There are no dominant masses or suspicious calcifications. Stable asymmetry of breast tissue where more breast tissue is seen in the upper central portion of the left breast as compared to the right side. Stable benign-appearing bilateral axillary lymph nodes. No other significant abnormalities are identified. There has been no significant change since the prior study. BI/SCRN MAMM (CAD)W/SKYLA BILAT IMPRESSION: Stable bilateral screening mammogram. Yearly follow-up mammogram recommended. (A) ASSESSMENT CATEGORY: BIRADS Category 2: Benign. A letter regarding these results will be sent to the patient by the facility within 30 days. Approximately 10% of breast cancers are not detected by mammography. A normal mammogram should not delay biopsy of a clinically suspicious abnormality. [id number] Electronically Signed: Bay Eugene MD at 11:19 EDT , Service support ,
== END ==
PROVIDERS: PCP Internal Medicine; Referring Provider Internal Medicine; Visit Provider Internal Medicine
DX: Z12.31 Encounter for screening mammogram for malignant neoplasm of breast (principal)
CPT/HCPCS: 77063; 77067

== ENCOUNTER → 2022-06-15 | Outpatient (CLI) | payer OTHER, SELFPAY ==
[2022-06-15 15:37] LABS: Mucous, Urine 0 SEEN /hpf (<or=2+); White Blood Cells 0 SEEN /hpf (0-5)
[2022-06-15 17:36] LABS: Absolute Lymphocyte Count 1.87 X10^3/uL (0.83-4.51); Basophil# 0.06 X10^3/uL; Basophil% 0.8 % (0-1); Color, Urine Yellow (Yellow); Eosinophil# 0.11 X10^3/uL; Eosinophils% 1.4 % (0-5); Glucose, Dipstick Normal (Normal); Hematocrit 39.9 % (37-47); Hemoglobin 13.4 g/dL (12.0-15.0); Ketone-Dipstick Negative (Negative); Leukocyte Esterase-Dipstick Negative /ul (Negative); Lymphocyte # 1.87 X10^3/ul (0.83-4.51); Lymphocyte % 24.4 % (19-41); Mean Corp Hgb Conc 33.6 g/dL (32-36); Mean Corpuscular Hgb 33.8 pg (27.0-32.0); Mean Corpuscular Volume 100.5 fL (81-99); Mean Platelet Vol. 9.8 fl (6.2-12.0); Monocyte# 0.65 X10^3/uL; Monocyte% 8.5 % (0-10); NRBC Flagged by Analyzer 0 % (0-5); Neutrophil # 4.96 X10^3/uL (2.7-7.7); Neutrophil % 64.6 % (47-70); Nitrite-Dipstick Negative (Negative); Occult Blood-Urine 10 /ul (Negative); Platelet Count 211 K/mm3 (150-450); Protein-Dipstick Negative (Negative); RBC Distribution Width CV 12.2 % (11.6-14.6); RBC Distribution Width SD 45.4 fl (35.1-43.9); Red Blood Count 3.97 M/mm3 (4.2-5.4); Specific Gravity, Urine 1.015 (1.002-1.030); Urine Bilirubin Dipstick Negative (Negative); Urine Clarity Clear (Clear); Urine Urobilinogen Normal (Normal); Urine pH 6.5 (5.0 - 8.0); White Blood Count 7.7 K/mm3 (4.4-11.0)
[2022-06-15 17:44] LABS: Bacteria RARE /hpf (None Seen); Red Blood Cells-Urine 0-5 SEEN /hpf (0-5); Squamous Epithelial Cells - UA 0-5 SEEN /hpf (5-10)
[2022-06-15 17:49] LABS: Vitamin B12 385 pg/mL (211-911); Vitamin D,25 Hydroxy 23.7 ng/mL
[2022-06-15 18:04] LABS: AST(SGOT) 56 U/L (15-37); Alanine Aminotransfer ALT/SGPT 64 U/L (13-56); Albumin, Serum 3.9 g/dL (3.2-5.0); Alkaline Phosphatase 83 U/L (45-117); Anion Gap 10 (5-15); BUN 24 mg/dL (7-18); BUN/Creat Ratio 31.5 RATIO (10-20); Calcium,Total 9.5 mg/dL (8.5-10.1); Chloride 98 mmol/L (98-107); Creatinine, Serum 0.76 mg/dL (0.55-1.02); EST Glomerular Filtration Rate 82 mL/min (>60); Est Glom Filt Rate - Afr Amer 99 mL/min (>60); Globulin 3.9 g/dL (2.2-4.2); Glucose 103 mg/dL (74-106); Potassium 3.9 mmol/L (3.5-5.1); Protein, Total 7.8 g/dL (6.4-8.2); Sodium Level 136 mmol/L (136-145)
== END | disposition home or self-care (01) ==
LOC: MTLAB 15:33
PROVIDERS: PCP Internal Medicine; Referring Provider Internal Medicine; Visit Provider Internal Medicine
DX: I10 Essential (primary) hypertension (principal); E53.8 Deficiency of other specified B group vitamins; E55.9 Vitamin D deficiency, unspecified
CPT/HCPCS: 36415; 80053; 81001; 82306; 82607; 85025

== ENCOUNTER → 2023-02-07 | Outpatient (CLI) | payer OTHER, SELFPAY ==
--- NOTE | 2023-02-07 14:47 | BI_ITS ---
MAMMOGRAPHY - BILATERAL SCREENING REASON FOR EXAM: Female, 62 years old. Routine annual screening examination. PERTINENT HISTORY: Non-contributory. TECHNIQUE: Digital bilateral breast skyla (3D mammographic acquisition) in the CC and MLO projections. 2-D mediolateral oblique (MLO) and craniocaudad (CC) views of both breasts were obtained. CAD: Full Field Digital Mammography with Computer Added Detection was performed. COMPARISON: Screening mammogram from 12/13/2020, 09/29/2019. FINDINGS: Breast Composition: The breasts are heterogeneously dense, which may obscure small masses. There are no dominant masses or suspicious calcifications. Stable slightly asymmetrically prominent breast tissue in the left upper retroareolar breast when compared to the right breast. Stable benign-appearing bilateral axillary lymph nodes. No other significant abnormalities are identified. There has been no significant change since the prior study. BI/SCRN MAMM (CAD)W/SKYLA BILAT IMPRESSION: Stable bilateral screening mammogram. Yearly follow-up mammogram recommended. (A) ASSESSMENT CATEGORY: BIRADS Category 2: Benign. A letter regarding these results will be sent to the patient by the facility within 30 days. Approximately 10% of breast cancers are not detected by mammography. A normal mammogram should not delay biopsy of a clinically suspicious abnormality. Electronically Signed: Dereje Vela DO at 14:29 EDT ,
== END | disposition home or self-care (01) ==
LOC: OPBD 02-13 17:23
PROVIDERS: PCP Internal Medicine; Referring Provider Internal Medicine; Visit Provider Internal Medicine
DX: Z12.31 Encounter for screening mammogram for malignant neoplasm of breast (principal)
CPT/HCPCS: 77063; 77067